=== PATIENT | female | born 1950 ===

== ENCOUNTER 2021-03-18 10:08 | Inpatient (IN) | payer OTHER ==
[~2021-03-18 10:08] MED LIST: BENICAR HCT 20-1 TA1 PO; CRESTOR10 MG PO; D-20002000 UNIT PO; E-400400 UNIT PO; MULTI-DAY1 TAB PO; NABUMETONE500 MG PO; PERCOCET 5/3251 TAB PO; VASOFLEX TABLET1 TAB PO
[2021-03-19] MEDS ORDERED: VASOFLEX FORTE1 EACH (08:02)
[2021-03-19] MEDS ORDERED: VENCLEXTA100 MG (08:02)
[2021-03-19] MEDS ORDERED: PYRIDOXINE HCL100 MG (08:03)
[2021-03-19] MEDS ORDERED: BETAMETHASONE D15 GM (08:03)
== END 2021-03-20 11:50 | disposition home or self-care (01) | DRG 812 ==
LOC: MEDJ 10:08
PROVIDERS: ADMIT Internal Medicine Hematology & Oncology; ATTEND Internal Medicine Hematology & Oncology
PROC: 30233R1 Transfusion of Nonautologous Platelets into Peripheral Vein, Percutaneous Approach (ICD-10-PCS; principal; 2021-03-18)
PROC: 30233N1 Transfusion of Nonautologous Red Blood Cells into Peripheral Vein, Percutaneous Approach (ICD-10-PCS; 2021-03-18)
DX: D46.22 Refractory anemia with excess of blasts 2 (principal); D61.818 Other pancytopenia; D46.A Refractory cytopenia with multilineage dysplasia; I10 Essential (primary) hypertension